=== PATIENT | female | born 1980 ===

== ENCOUNTER 2024-10-10 08:54 | Emergency (ER) | payer OTHER ==
[2024-10-10] MEDS: Lidocaine/Epineph/Tetracaine 3 ML Syringe TOP ONE (10:00)
== END 2024-10-10 10:58 | disposition home or self-care (01) ==
LOC: MW.ED 08:54
DX: L02.415 Cutaneous abscess of right lower limb (principal); L03.115 Cellulitis of right lower limb; Z79.899 Other long term (current) drug therapy
CPT/HCPCS: 10060; 99283; A9270